=== PATIENT | female | born 1960 ===

== ENCOUNTER 2021-12-19 08:34 | Emergency (ER) | payer SELFPAY ==
[2021-12-19] MEDS ORDERED: Aspirin 81 MG Tab.Chew PO ONE (08:48)
[2021-12-19 09:26] LABS: BLOOD UREA NITROGEN,BUN 9 mg/dL (7.0-18.0); CARBON DIOXIDE,CO2 24.2 mmol/L (21.0-32.0); CHLORIDE,CL 99 mmol/L (98-107); GLUCOSE RANDOM 108 mg/dL (74-106); LIPASE 64 U/L (73-393); POTASSIUM,K 3.6 mmol/L (3.5-5.1); SODIUM,NA 135 mmol/L (136-145)
[2021-12-19] MEDS ORDERED: Alum Hydro/Mag Hydro/Simeth XS 15 ML, Lidocaine 2% 5 ML PO ONE ×2 (09:35)
== END 2021-12-19 10:17 | disposition home or self-care (01) ==
LOC: MW.ED 08:34
DX: R07.89 Other chest pain (principal); K21.9 Gastro-esophageal reflux disease without esophagitis; Z79.899 Other long term (current) drug therapy
CPT/HCPCS: 36415; 71045; 80053; 83690; 84484; 85025; 85379; 87635; 93005; 99285; A9270; U0002

== ENCOUNTER 2024-04-07 23:17 | Emergency (ER) | payer SELFPAY ==
[2024-04-08 00:20] LABS: BASOPHILS ABSOLUTE AUTO 0.04 K/uL (0.00-0.20); BASOPHILS PERCENT AUTO 0.6 % (0.0-1.0); EOSINOPHILS ABSOLUTE AUTO 0.07 K/uL (0.00-0.45); HEMATOCRIT 24.3 % (37.0-47.0); HEMOGLOBIN 6.5 g/dL (12.0-16.0); IMMATURE GRAN ABSOLUTE AUTO 0.01 K/uL (0.00-0.05); IMMATURE GRAN PERCENT AUTO 0.1 % (0.0-0.4); LYMPHOCYTES ABSOLUTE AUTO 2.92 K/uL (1.00-4.80); LYMPHOCYTES PERCENT AUTO 42.4 % (24.0-44.0); MEAN CORPUSCULAR HGB CONC 26.7 g/dL (32.0-36.0); MONOCYTES ABSOLUTE AUTO 0.87 K/uL (0.00-0.80); MONOCYTES PERCENT AUTO 12.6 % (0.0-8.0); NEUTROPHILS ABSOLUTE AUTO 2.97 K/uL (1.80-7.70); NEUTROPHILS PERCENT AUTO 43.3 % (41.0-71.0); PLATELET COUNT,PLT 346 K/uL (150-400); RED BLOOD CELL COUNT 4.05 M/uL (4.10-5.30); WHITE BLOOD CELL COUNT,WBC 6.88 K/uL (3.9-11.3)
[2024-04-08 00:41] LABS: INR 0.97 (0.86-1.11); PTT,PARTIAL THROMBOPLSTIN TIME 26.2 SEC (23.9-30.7)
[2024-04-08 00:43] LABS: ALBUMIN 3.5 g/dL (3.4-5.0); BILIRUBIN TOTAL 0.3 mg/dL (0.2-1.0); CALCIUM 8.8 mg/dL (8.5-10.1); CARBON DIOXIDE,CO2 27.1 mmol/L (21.0-32.0); CREATININE 0.6 mg/dL (0.6-1.0); EST CRCL DRUG DOSING (CG) 90.62 mL/min; POTASSIUM,K 3.9 mmol/L (3.5-5.1); PROTEIN TOTAL,TP 7.1 g/dL (6.4-8.2)
[2024-04-08] MEDS: Sodium Chloride 0.9% 10 ML Syringe FLUSH PRN (00:56)
[2024-04-08] MEDS: Sodium Chloride 0.9% 2.5 ML Syringe FLUSH PRN (00:57)
[2024-04-08 01:44] LABS: PERCENT FE SATURATION 1.39 % (20-55)
== END 2024-04-08 05:02 | disposition home or self-care (01) ==
LOC: MW.ED 23:17
DX: D50.9 Iron deficiency anemia, unspecified (principal); Z75.8 Other problems related to medical facilities and other health care
CPT/HCPCS: 36415; 36430; 71045; 80053; 82728; 83550; 83690; 83735; 85025; 85610; 85730; 86850; 86900; 86901; 86920; 93005; 99284; J3490; P9016; 93010; 99283

== ENCOUNTER 2024-04-13 09:19 | Emergency (ER) | payer SELFPAY ==
[2024-04-13] MEDS: Sodium Chloride 0.9% 10 ML Syringe FLUSH PRN (09:35)
[2024-04-13] MEDS: Sodium Chloride 0.9% 2.5 ML Syringe FLUSH PRN (09:35)
[2024-04-13 09:46] LABS: BASOPHILS ABSOLUTE AUTO 0.02 K/uL (0.00-0.20); BASOPHILS PERCENT AUTO 0.2 % (0.0-1.0); EOSINOPHILS ABSOLUTE AUTO 0.01 K/uL (0.00-0.45); EOSINOPHILS PERCENT AUTO 0.1 % (0.0-6.0); HEMATOCRIT 30.1 % (37.0-47.0); HEMOGLOBIN 8.4 g/dL (12.0-16.0); IMMATURE GRAN ABSOLUTE AUTO 0.09 K/uL (0.00-0.05); LYMPHOCYTES PERCENT AUTO 13.7 % (24.0-44.0); MEAN CORPUSCULAR HEMOGLOBIN 17.9 pg (28.0-32.0); MEAN CORPUSCULAR HGB CONC 27.9 g/dL (32.0-36.0); MEAN CORPUSCULAR VOLUME 64.2 fL (83.0-99.0); MEAN PLATELET VOLUME 8.9 fL (9.4-12.3); MONOCYTES ABSOLUTE AUTO 0.58 K/uL (0.00-0.80); MONOCYTES PERCENT AUTO 6.6 % (0.0-8.0); NEUTROPHILS ABSOLUTE AUTO 6.85 K/uL (1.80-7.70); NEUTROPHILS PERCENT AUTO 78.4 % (41.0-71.0); PLATELET COUNT,PLT 253 K/uL (150-400); RED BLOOD CELL COUNT 4.69 M/uL (4.10-5.30); WHITE BLOOD CELL COUNT,WBC 8.75 K/uL (3.9-11.3)
[2024-04-13 10:28] LABS: A/G RATIO 1.1 (0.9-1.6); ALBUMIN 3.7 g/dL (3.4-5.0); BILIRUBIN TOTAL 0.4 mg/dL (0.2-1.0); CALCIUM 8.6 mg/dL (8.5-10.1); CARBON DIOXIDE,CO2 26.1 mmol/L (21.0-32.0); CREATININE 0.6 mg/dL (0.6-1.0); EST CRCL DRUG DOSING (CG) 91.66 mL/min; PERCENT FE SATURATION 2.16 % (20-55); POTASSIUM,K 3.8 mmol/L (3.5-5.1); PROTEIN TOTAL,TP 7.2 g/dL (6.4-8.2)
[2024-04-13] MEDS: traMADol 50 MG Tab PO STA (10:55)
[2024-04-13] MEDS: Ondansetron 4 MG/2 ML SDV IVPUSH STA (10:55)
== END 2024-04-13 17:20 | disposition home or self-care (01) ==
LOC: MW.ED 09:19
DX: S32.028A Other fracture of second lumbar vertebra, initial encounter for closed fracture (principal); S32.048A Other fracture of fourth lumbar vertebra, initial encounter for closed fracture; D50.9 Iron deficiency anemia, unspecified; Z75.8 Other problems related to medical facilities and other health care; W17.89XA Other fall from one level to another, initial encounter
CPT/HCPCS: 36415; 72131; 72192; 80053; 83550; 84484; 85025; 86850; 86900; 86901; 93005; 96374; 99284; A9270; J2405; J3490; 93010